=== PATIENT | female | born 1945 | race Caucasian/White ===

== ENCOUNTER 2019-11-24 17:04 | Inpatient (IN) | payer MEDICARE, OTHER ==
[~2019-11-24] VITALS: Ht 167.6 cm; Wt 68.0 kg
[2019-11-24] MEDS ORDERED: SODIUM CHLORIDE 0.9% 1000ML 1,000 ML IV STA (17:22)
[2019-11-24] MEDS ORDERED: VANCOMYCIN HCL 1GM/NS 250 ML BAG IV SCH (17:30)
[2019-11-24] MEDS ORDERED: CEFEPIME HCL 2 GM/SOD CHL 0.9% 100 ML BAG IV SCH (17:30)
--- NOTE | 2019-11-24 17:39 | Emergency Department Note ---
History of Present Illnes History of Present Illness Chief Complaint: Respiratory History of Present Illness This is a 74 year old female [facility]/o diff breathing has trach collar - pt awake alert oriented x 3 o2 sat 97% PATIENT IN [facility] FOR DIFFICULTY BREATHING; PATIENT HAS A TRACH AND IS USUALLY JUST ON A TRACH COLLAR. PATIENT STATES THAT SHE IS UNABLE TO BREATH AND NEEDS SOMEONE TO BAG HER. PATIENT O2 SATS 97% ON O2, APPEARS IN NO DISTRESS, BAGGED BY EMS UPON ARRIVAL Historian: Patient, Administration Professional/EMS Arrival Mode: [place] Onset (how long ago): day(s) (1) Radiation: Denies non-radiation, Denies back, Denies neck, Denies extremity, Denies abdomen, Denies periumbilical, Denies flank, Denies proximal, Denies distal, Denies other Severity: mild Onset quality: sudden Duration (how long): day(s) (1) Timing of current episode: constant Progression: unchanged Context: Denies recent illness, Denies recent surgery, Denies recent immobilization, Denies recent travel, Denies trauma/injury, Denies new medications, Denies hx of DVT/PE, Denies non-compliance w/ medications, Denies other Relieving factors: none Exacerbating factors: none Associated symptoms: Denies denies other symptoms, Denies confusion, Denies chest pain, Denies cough, Denies diaphoresis, Denies fever/chills, Denies headaches, Denies loss of appetite, Denies malaise, Denies nausea/vomiting, Denies rash, Denies seizure, Denies shortness of breath, Denies syncope, Denies weakness, Denies other Past Medical/Family History Physician Review I have reviewed the patient's past medical and family history. Any updates have been documented here. 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% ) Gastrointestinal: Reports no symptoms Genitourinary: Reports no symptoms Musculoskeletal: Reports no symptoms Integumentary: Reports no symptoms Neurological: Reports no symptoms Psychological: Reports no symptoms Endocrine: Reports no symptoms Hematological/Lymphatic: Reports no symptoms Physical Exam Related Data Allergies: Coded Allergies: Penicillins (Verified Allergy, Severe, 11/24/19) Triage Vital Signs Vital Signs Date Time Temp Pulse Resp B/P (MAP) Pulse Ox O2 Delivery O2 Flow Rate FiO2 11/24/19 17:04 97.6 86 16 121/70 97 Ambu-Bag Vital signs reviewed: Yes Physical Exam CONSTITUTIONAL Constitutional: Present well-developed, Present well-nourished HENT HENT: Present normocephalic, Present atraumatic, Present oropharynx clear/moist, Present nose normal HENT L/R: Present left ext ear normal, Present right ext ear normal EYES Eyes: Reports PERRL, Reports conjunctivae normal NECK Neck: Present ROM normal PULMONARY Pulmonary: Present effort normal, Present breath sounds normal; Absent respiratory distress, Absent chest tenderness CARDIOVASCULAR Cardiovascular: Present regular rhythm, Present heart sounds normal, Present capillary refill normal, Present normal rate GASTROINTESTINAL Abdominal: Present soft, Present nontender, Present bowel sounds normal GENITOURINARY Genitourinary: Present exam deferred SKIN Skin: Present warm, Present dry MUSCULOSKELETAL Musculoskeletal: Present ROM normal NEUROLOGICAL Neurological: Present alert, Present oriented x 3, Present no gross motor or sensory deficits PSYCHOLOGICAL Psychological: Present mood/affect normal, Present judgement normal Results Laboratory Laboratory Laboratory Tests Test 11/24/19 17:58 11/24/19 17:40 Influenza Virus Types A,B Antigen Negative (NEGATIVE) White Blood Count 14.89 x10e3/uL (4.8-10.8) Red Blood Count 4.78 x10e6/uL (3.6-5.1) Hemoglobin 13.7 g/dL (12.0-16.0) Hematocrit 43.6 % (34.2-44.1) Mean Corpuscular Volume 91.2 fL (81-99) Mean Corpuscular Hemoglobin 28.7 pg (28-32) Mean Corpuscular Hemoglobin Concent 31.4 g/dL (31-35) Red Cell Distribution Width 12.8 % (11.7-14.4) Platelet Count 306 x10e3/uL (140-360) Neutrophils (%) (Auto) 89.8 % (38.7-80.0) Lymphocytes (%) (Auto) 5.0 % (18.0-39.1) Monocytes (%) (Auto) 4.5 % (4.4-11.3) Eosinophils (%) (Auto) 0.1 % (0.0-6.0) Basophils (%) (Auto) 0.3 % (0.0-1.0) Neutrophils # (Auto) 13.4 (2.1-6.9) Lymphocytes # (Auto) 0.7 (1.0-3.2) Monocytes # (Auto) 0.7 (0.2-0.8) Eosinophils # (Auto) 0.0 (0.0-0.4) Basophils # (Auto) 0.1 (0.0-0.1) Absolute Immature Granulocyte (auto 0.05 x10e3/uL (0-0.1) Prothrombin Time 12.9 seconds (11.9-14.5) Prothromb Time International Ratio 0.92 Activated Partial Thromboplast Time 27.7 seconds (23.8-35.5) Sodium Level 143 mmol/L (136-145) Potassium Level 3.9 mmol/L (3.5-5.1) Chloride Level 103 mmol/L (98-107) Carbon Dioxide Level 30 mmol/L (22-29) Anion Gap 13.9 mmol/L (8-16) Blood Urea Nitrogen 35 mg/dL (7-26) Creatinine 0.95 mg/dL (0.57-1.11) Estimat Glomerular Filtration Rate 57 ML/MIN (60-) BUN/Creatinine Ratio 37 (6-25) Glucose Level 196 mg/dL (74-118) Lactic Acid Level 2.0 mmol/L (0.5-2.0) Calcium Level 10.7 mg/dL (8.4-10.2) Total Bilirubin 0.3 mg/dL (0.2-1.2) Aspartate Amino Transf (AST/SGOT) 32 IU/L (5-34) Alanine Aminotransferase (ALT/SGPT) 30 IU/L (0-55) Alkaline Phosphatase 59 IU/L (40-150) Creatine Kinase 36 IU/L (29-168) B-Type Natriuretic Peptide 60.6 pg/mL (0-100) Total Protein 8.1 g/dL (6.5-8.1) Albumin 2.9 g/dL (3.5-5.0) Globulin 5.2 g/dL (2.3-3.5) Albumin/Globulin Ratio 0.6 (0.8-2.0) Lipase 25 U/L (8-78) Laboratory Tests Test 11/24/19 17:58 11/24/19 17:40 Influenza Virus Types A,B Antigen Negative (NEGATIVE) White Blood Count 14.89 x10e3/uL (4.8-10.8) Red Blood Count 4.78 x10e6/uL (3.6-5.1) Hemoglobin 13.7 g/dL (12.0-16.0) Hematocrit 43.6 % (34.2-44.1) Mean Corpuscular Volume 91.2 fL (81-99) Mean Corpuscular Hemoglobin 28.7 pg (28-32) Mean Corpuscular Hemoglobin Concent 31.4 g/dL (31-35) Red Cell Distribution Width 12.8 % (11.7-14.4) Platelet Count 306 x10e3/uL (140-360) Neutrophils (%) (Auto) 89.8 % (38.7-80.0) Lymphocytes (%) (Auto) 5.0 % (18.0-39.1) Monocytes (%) (Auto) 4.5 % (4.4-11.3) Eosinophils (%) (Auto) 0.1 % (0.0-6.0) Basophils (%) (Auto) 0.3 % (0.0-1.0) Neutrophils # (Auto) 13.4 (2.1-6.9) Lymphocytes # (Auto) 0.7 (1.0-3.2) Monocytes # (Auto) 0.7 (0.2-0.8) Eosinophils # (Auto) 0.0 (0.0-0.4) Basophils # (Auto) 0.1 (0.0-0.1) Absolute Immature Granulocyte (auto 0.05 x10e3/uL (0-0.1) Prothrombin Time 12.9 seconds (11.9-14.5) Prothromb Time International Ratio 0.92 Activated Partial Thromboplast Time 27.7 seconds (23.8-35.5) Sodium Level 143 mmol/L (136-145) Potassium Level 3.9 mmol/L (3.5-5.1) Chloride Level 103 mmol/L (98-107) Carbon Dioxide Level 30 mmol/L (22-29) Anion Gap 13.9 mmol/L (8-16) Blood Urea Nitrogen 35 mg/dL (7-26) Creatinine 0.95 mg/dL (0.57-1.11) Estimat Glomerular Filtration Rate 57 ML/MIN (60-) BUN/Creatinine Ratio 37 (6-25) Glucose Level 196 mg/dL (74-118) Lactic Acid Level 2.0 mmol/L (0.5-2.0) Calcium Level 10.7 mg/dL (8.4-10.2) Total Bilirubin 0.3 mg/dL (0.2-1.2) Aspartate Amino Transf (AST/SGOT) 32 IU/L (5-34) Alanine Aminotransferase (ALT/SGPT) 30 IU/L (0-55) Alkaline Phosphatase 59 IU/L (40-150) Creatine Kinase 36 IU/L (29-168) B-Type Natriuretic Peptide 60.6 pg/mL (0-100) Total Protein 8.1 g/dL (6.5-8.1) Albumin 2.9 g/dL (3.5-5.0) Globulin 5.2 g/dL (2.3-3.5) Albumin/Globulin Ratio 0.6 (0.8-2.0) Lipase 25 U/L (8-78) Laboratory Tests Test 11/24/19 17:58 11/24/19 17:40 Influenza Virus Types A,B Antigen Negative (NEGATIVE) White Blood Count 14.89 x10e3/uL (4.8-10.8) Red Blood Count 4.78 x10e6/uL (3.6-5.1) Hemoglobin 13.7 g/dL (12.0-16.0) Hematocrit 43.6 % (34.2-44.1) Mean Corpuscular Volume 91.2 fL (81-99) Mean Corpuscular Hemoglobin 28.7 pg (28-32) Mean Corpuscular Hemoglobin Concent 31.4 g/dL (31-35) Red Cell Distribution Width 12.8 % (11.7-14.4) Platelet Count 306 x10e3/uL (140-360) Neutrophils (%) (Auto) 89.8 % (38.7-80.0) Lymphocytes (%) (Auto) 5.0 % (18.0-39.1) Monocytes (%) (Auto) 4.5 % (4.4-11.3) Eosinophils (%) (Auto) 0.1 % (0.0-6.0) Basophils (%) (Auto) 0.3 % (0.0-1.0) Neutrophils # (Auto) 13.4 (2.1-6.9) Lymphocytes # (Auto) 0.7 (1.0-3.2) Monocytes # (Auto) 0.7 (0.2-0.8) Eosinophils # (Auto) 0.0 (0.0-0.4) Basophils # (Auto) 0.1 (0.0-0.1) Absolute Immature Granulocyte (auto 0.05 x10e3/uL (0-0.1) Prothrombin Time 12.9 seconds (11.9-14.5) Prothromb Time International Ratio 0.92 Activated Partial Thromboplast Time 27.7 seconds (23.8-35.5) Lactic Acid Level 2.0 mmol/L (0.5-2.0) Lab results reviewed: Yes Imaging Impressions Procedure: [id number] DX/CHEST SINGLE (PORTABLE) Exam Date: 11/24/19 Exam Time: 1739 REPORT STATUS: Signed EXAMINATION: CHEST SINGLE (PORTABLE) INDICATION: ^Y ^ERMD ORDER ^[id number] ^1739 ^Y COMPARISON: None FINDINGS: AP view TUBES and LINES: Tracheostomy tube in adequate position. ICD with leads overlying the coronary sinus and right ventricle. Right atrial lead is not well seen. LUNGS: Lungs are well inflated. Subsegmental atelectasis in the right lower lobe. Mild bilateral central pulmonary vascular congestion. PLEURA: No pleural effusion or pneumothorax. HEART AND MEDIASTINUM: The cardiomediastinal silhouette is unremarkable.. BONES AND SOFT TISSUES: No acute osseous lesion. Soft tissues are unremarkable. UPPER ABDOMEN: No free air under the diaphragm. IMPRESSION: Subsegmental atelectasis in the right lower lobe, cannot exclude underlying pneumonia. Mild central pulmonary vascular congestion. Signed by: Dr. Stanford العراقي M.D. on 11/24/2019 6:27 PM Dictated By: STANFORD العراقي MD 26 Transcribed By: SUZI on 11/24/191826 COPY TO: PATT LUCIANO~ Procedures 12 Lead ECG Interpretation ECG Interpretation : ECG: ECG 1 Dobie Worker: Interpreted by ED physician Date: Nov 24, 2019 Time: 17:53 Prior ECG tracings: reviewed Rhythm: paced Assessment & Plan Medical Decision Making MDM This is a 74 year old female [facility] diff breathing has trach collar - pt awake alert oriented x 3 o2 sat 97% ordered lab ekg cxr medicated w/ vanc/cefepime d/d viral illness / trach disfunction / pne / covid / electrolyte imbalance Reassessment Reassessment discussed plan of care and need for admit spoke w/ Dr De La Cruz will admit Assessment & Plan Final Impression: (1) Pneumonia (2) Upper respiratory infection (3) Hypoxia (4) Tracheostomy in place Depart Disposition: ADMITTED Last Vital Signs Date Time Temp Pulse Resp B/P (MAP) Pulse Ox O2 Delivery O2 Flow Rate FiO2 11/24/19 17:04 97.6 86 16 121/70 97 Ambu-Bag Medications in the ED Sodium Chloride 1,000 ml @ 0 mls/hr Q0M STAT IV ; Start 11/24/19 at 17:22; Stop 11/24/19 at 17:27; Status DC Vancomycin HCl 250 ml @ 167 mls/hr ONCE ONCE IV ; Start 11/24/19 at 18:30; Stop 11/24/19 at 19:59 Cefepime HCl 50 ml @ 50 mls/hr ONCE ONCE IV ; Start 11/24/19 at 17:45; Stop 11/24/19 at 18:44 PATT LUCIANO Nov 24, 2019 17:39
[2019-11-24] MEDS ORDERED: CEFEPIME 1GM/NS 0.9% 50 ML 50 ML IV ONE (17:45)
[2019-11-24] MEDS: SODIUM CHLORIDE 0.9% 1000ML 1,000 ML IV SCH (18:18)
[2019-11-24] MEDS ORDERED: IPRATROPIUM BROMIDE 0.02% 2.5 ML NEB NEB SCH (18:20)
[2019-11-24 18:24] LABS: BASOPHILS # (AUTO) 0.1 (0.0-0.1); BASOPHILS % 0.3 % (0.0-1.0); EOSINOPHILS % 0.1 % (0.0-6.0); HEMATOCRIT 43.6 % (34.2-44.1); HEMOGLOBIN 13.7 g/dL (12.0-16.0); LYMPHOCYTES # (AUTO) 0.7 (1.0-3.2); MEAN CORPUSCULAR HEMOGLOBIN 28.7 pg (28-32); MEAN CORPUSCULAR HGB CONC 31.4 g/dL (31-35); MEAN CORPUSCULAR VOLUME 91.2 fL (81-99); MONOCYTES # (AUTO) 0.7 (0.2-0.8); MONOCYTES % 4.5 % (4.4-11.3); NEUTROPHILS # (AUTO) 13.4 (2.1-6.9); NEUTROPHILS % 89.8 % (38.7-80.0); PLATELET COUNT 306 x10e3/uL (140-360); RED BLOOD COUNT 4.78 x10e6/uL (3.6-5.1); RED CELL DISTRIBUTION WIDTH 12.8 % (11.7-14.4)
[2019-11-24] MEDS ORDERED: VANCOMYCIN 1GM/NS 250 ML 250 ML IV ONE (18:30)
--- NOTE | 2019-11-24 18:30 | Diagnostic Imaging Report ---
EXAMINATION: CHEST SINGLE (PORTABLE) INDICATION: ^Y ^ERMD ORDER ^[id number] ^1740 ^Y COMPARISON: None FINDINGS: AP view TUBES and LINES: Tracheostomy tube in adequate position. ICD with leads overlying the coronary sinus and right ventricle. Right atrial lead is not well seen. LUNGS: Lungs are well inflated. Subsegmental atelectasis in the right lower lobe. Mild bilateral central pulmonary vascular congestion. PLEURA: No pleural effusion or pneumothorax. HEART AND MEDIASTINUM: The cardiomediastinal silhouette is unremarkable.. BONES AND SOFT TISSUES: No acute osseous lesion. Soft tissues are unremarkable. UPPER ABDOMEN: No free air under the diaphragm. IMPRESSION: Subsegmental atelectasis in the right lower lobe, cannot exclude underlying pneumonia. Mild central pulmonary vascular congestion. Signed by: Dr. Bonny Campbell M.D. on 11/24/2019 6:27 PM
[2019-11-24 18:33] LABS: INR 0.92; PROTHROMBIN TIME 12.9 seconds (11.9-14.5)
[2019-11-24 18:34] LABS: PARTIAL THROMBOPLASTIN TIME 27.7 seconds (23.8-35.5)
[2019-11-24 18:42] LABS: ALBUMIN 2.9 g/dL (3.5-5.0); ALBUMIN/GLOBULIN RATIO 0.6 (0.8-2.0); ANION GAP 13.9 mmol/L (8-16); CALCIUM 10.7 mg/dL (8.4-10.2); CREATININE, SERUM 0.95 mg/dL (0.57-1.11); POTASSIUM 3.9 mmol/L (3.5-5.1)
[2019-11-24 18:51] LABS: B-TYPE NATRIURETIC PEPTIDE2 60.6 pg/mL (0-100)
[2019-11-24 19:02] LABS: CREATINE KINASE MB 4.2 ng/mL (0-5.0); THYROID STIMULATING HORMONE 1.928 uIU/mL (0.350-4.940)
[2019-11-24] MEDS: ALBUTEROL SULF 0.083% NEB SOLN 3 ML NEB NEB SCH (20:40)
[2019-11-25] MEDS: SODIUM CHLORIDE 0.9% 1000ML 1,000 ML IV SCH ×2 (02:50→19:50)
[2019-11-25 07:18] LABS: BASOPHILS % 0.2 % (0.0-1.0); EOSINOPHILS % 0.1 % (0.0-6.0); HEMATOCRIT 41.3 % (34.2-44.1); HEMOGLOBIN 12.6 g/dL (12.0-16.0); LYMPHOCYTES # (AUTO) 1.7 (1.0-3.2); LYMPHOCYTES % 20.8 % (18.0-39.1); MEAN CORPUSCULAR HEMOGLOBIN 28.4 pg (28-32); MEAN CORPUSCULAR HGB CONC 30.5 g/dL (31-35); MONOCYTES # (AUTO) 0.5 (0.2-0.8); MONOCYTES % 6.3 % (4.4-11.3); NEUTROPHILS # (AUTO) 5.9 (2.1-6.9); NEUTROPHILS % 72.2 % (38.7-80.0); PLATELET COUNT 270 x10e3/uL (140-360); RED BLOOD COUNT 4.44 x10e6/uL (3.6-5.1); RED CELL DISTRIBUTION WIDTH 12.7 % (11.7-14.4)
--- NOTE | 2019-11-25 07:25 | NUR ---
NURSING REPORT RECEIVED FROM CHOLO FOWLER.
[2019-11-25 07:50] LABS: ALANINE AMINOTRANSFERASE 23 IU/L (0-55); ALBUMIN 2.7 g/dL (3.5-5.0); ALBUMIN/GLOBULIN RATIO 0.6 (0.8-2.0); ALKALINE PHOSPHATASE 55 IU/L (40-150); ANION GAP 12.9 mmol/L (8-16); BLOOD UREA NITROGEN 34 mg/dL (7-26); BUN/CREATININE RATIO 43 (6-25); CARBON DIOXIDE 27 mmol/L (22-29); CHLORIDE 109 mmol/L (98-107); EST GLOMERULAR FILTRATION RATE > 60 ML/MIN (60-); GLUCOSE 111 mg/dL (74-118); POTASSIUM 3.9 mmol/L (3.5-5.1); SODIUM 145 mmol/L (136-145)
[2019-11-25 08:18] LABS: CREATINE KINASE MB 3.9 ng/mL (0-5.0)
[2019-11-25] MEDS: CEFEPIME 2 GM/NS 0.9% 100 ML 100 ML IV SCH ×2 (09:38→19:43)
--- NOTE | 2019-11-25 11:10 | NUR ---
PT REMOVED FROM VENTILATOR, PT PLACED ON 40% TRACH COLLAR.
[2019-11-25] MEDS: VANCOMYCIN 1GM/NS 250 ML 250 ML IV SCH ×3 (12:00→23:30)
[2019-11-25] MEDS: IPRATROPIUM BROMIDE 0.02% 2.5 ML NEB NEB SCH ×3 (14:00→23:35)
--- NOTE | 2019-11-25 14:23 | Consultation ---
DATE OF CONSULTATION: Pulmonary Consultation Patient of Dr. Navarro De La Cruz HISTORY OF PRESENT ILLNESS: Unfortunate 74-year-old woman admitted from alf with shortness of breath, hypoxia, and anxious. Apparently, she has had a left mastectomy for cancer. Has a tracheostomy. Allergic to penicillin. She has bloody secretions which she requested that I remove. Further questions were not answered by her. We were concerned with her thirst but she declined water, requesting ice. This was discussed with the nurse. she denies dx of copd she was a typisr PHYSICAL EXAMINATION: VITAL SIGNS: Temperature 98.5, pulse 60 and regular, respirations 20, blood pressure 150/88. A tracheostomy is in place. Bloody secretions were aspirated. LUNGS: Diminished breath sounds. Pacemaker right chest wall. Left mastectomy scar. HEART: Regular rhythm. ABDOMEN: Nontender. EXTREMITIES: Not edematous. IMPRESSION: Right lower lobe infiltrate. PLAN: Pneumonia, COPD, breast cancer. Reason for tracheostomy is unclear at this time. Apparently, will attempted to get old records. Thank you for this kind referral. MD RICHARD Mccloud/CLAUDINE /[id number] MTDJudith
[2019-11-25 15:45] LABS: ABG HCO3 28 mmol/L (22-26); ABG PCO2 47 mmHg (35-45); ABG PH 7.39 (7.35-7.45); ABG PO2 113 mmHg (80-105)
[2019-11-25 16:59] LABS: CREATINE KINASE MB 6.1 ng/mL (0-5.0)
[2019-11-25] MEDS: ENOXAPARIN SOD INJ 40 MG/0.4 ML SYR SC SCH (19:43)
[2019-11-25] MEDS: ALBUTEROL SULF 0.083% NEB SOLN 3 ML NEB NEB SCH (23:35)
[2019-11-26] VITALS (10 sets, daily range): BP systolic 121–174; BP diastolic 64–108
--- NOTE | 2019-11-26 00:50 | NUR ---
Patient received via stretcher. AAO x 2. Patient had no complaints of pain. Respirations even and non-labored. Tracheostomy collar in place. Admission history obtained. Initial physical assessment conducted. Safety measures implemented. Patient provided pen and paper to communicate needs. Patient instructed to call for assistance when needed. Call light within reach.
[2019-11-26] MEDS: IPRATROPIUM BROMIDE 0.02% 2.5 ML NEB NEB SCH ×6 (02:30→22:00)
[2019-11-26] MEDS: ALBUTEROL SULF 0.083% NEB SOLN 3 ML NEB NEB SCH ×6 (02:30→23:00)
[2019-11-26] MEDS ORDERED: SEROQUEL25 MG GT (04:29)
[2019-11-26] MEDS ORDERED: ACETAMINOPHEN325 M1 GT (04:29)
[2019-11-26] MEDS ORDERED: FLUTICASONE PRO16 GM NS (04:29)
[2019-11-26] MEDS ORDERED: BUSPIRONE HCL5 MG GT (04:29)
[2019-11-26] MEDS ORDERED: NYSTATIN1 EAC2 TOP (04:29)
[2019-11-26] MEDS ORDERED: METOPROLOL TART25 MG GT (04:29)
[2019-11-26] MEDS ORDERED: ULTRAM50 MG PO (04:29)
[2019-11-26] MEDS ORDERED: ZOLOFT50 MG GT (04:29)
[2019-11-26] MEDS ORDERED: IPRAT-ALBUT 0.5-3 ML INH (04:29)
[2019-11-26] MEDS ORDERED: DOCUSATE SODIU100 MG GT (04:29)
[2019-11-26] MEDS ORDERED: BENADRYL ALLERG25 MG GT (04:29)
[2019-11-26] MEDS ORDERED: CLARITIN-D 241 EACH GT (04:29)
--- NOTE | 2019-11-26 04:30 | NUR ---
Sputum specimen sent to lab for culture
[2019-11-26 06:09] LABS: BASOPHILS % 0.4 % (0.0-1.0); EOSINOPHILS % 0.4 % (0.0-6.0); HEMATOCRIT 42.2 % (34.2-44.1); LYMPHOCYTES # (AUTO) 1.4 (1.0-3.2); LYMPHOCYTES % 20.2 % (18.0-39.1); MEAN CORPUSCULAR HEMOGLOBIN 29.1 pg (28-32); MEAN CORPUSCULAR HGB CONC 30.8 g/dL (31-35); MEAN CORPUSCULAR VOLUME 94.6 fL (81-99); MONOCYTES # (AUTO) 0.5 (0.2-0.8); MONOCYTES % 7.6 % (4.4-11.3); NEUTROPHILS # (AUTO) 4.9 (2.1-6.9); PLATELET COUNT 252 x10e3/uL (140-360); RED BLOOD COUNT 4.46 x10e6/uL (3.6-5.1); RED CELL DISTRIBUTION WIDTH 12.7 % (11.7-14.4)
[2019-11-26 06:29] LABS: CREATINE KINASE MB 10.4 ng/mL (0-5.0)
[2019-11-26] MEDS: CEFEPIME 2 GM/NS 0.9% 100 ML 100 ML IV SCH ×2 (06:41→22:30)
[2019-11-26] MEDS: VANCOMYCIN 1GM/NS 250 ML 250 ML IV SCH (06:41)
--- NOTE | 2019-11-26 07:00 | NUR ---
Walking rounds done. Patient resting comfortably. Bed-side shift report given to oncoming nurse.
[2019-11-26 07:03] LABS: ANION GAP 13.5 mmol/L (8-16); BLOOD UREA NITROGEN 33 mg/dL (7-26); BUN/CREATININE RATIO 42 (6-25); CALCIUM 10.2 mg/dL (8.4-10.2); CARBON DIOXIDE 25 mmol/L (22-29); CHLORIDE 110 mmol/L (98-107); CREATININE, SERUM 0.79 mg/dL (0.57-1.11); EST GLOMERULAR FILTRATION RATE > 60 ML/MIN (60-); GLUCOSE 107 mg/dL (74-118); POTASSIUM 3.5 mmol/L (3.5-5.1); SODIUM 145 mmol/L (136-145)
[2019-11-26] MEDS: SODIUM CHLORIDE 0.9% 1000ML 1,000 ML IV SCH ×2 (09:30→22:30)
[2019-11-26] MEDS ORDERED: FLUTICASONE PROPIONATE NASAL SPRAY NS PRN (12:30)
[2019-11-26] MEDS ORDERED: NYSTATIN 15 GM POWDER UD BTL TOP PRN (12:30)
[2019-11-26] MEDS ORDERED: ACETAMINOPHEN 325 MG TAB GT PRN (12:30)
[2019-11-26] MEDS: ONDANSETRON HCL INJ 2MG/ML 2ML 2 MG/ML VIAL IV PRN (14:40)
[2019-11-26] MEDS: SERTRALINE HCL 50 MG TAB GT SCH (16:42)
[2019-11-26] MEDS: ENOXAPARIN SOD INJ 40 MG/0.4 ML SYR SC SCH (16:42)
[2019-11-26] MEDS: DOCUSATE SODIUM LIQD 100 MG/10 ML UDC GT SCH (16:42)
[2019-11-26] MEDS: METOPROLOL TARTRATE 25 MG TAB GT SCH (16:42)
[2019-11-26] MEDS: BUSPIRONE HCL 5 MG TAB GT SCH (16:42)
--- NOTE | 2019-11-26 17:42 | NUR ---
Peg tube flushed with no issues, continuos tube feeding started,
--- NOTE | 2019-11-26 19:30 | NUR ---
PATIENT NAUSEATED, NO IV, UNABLE TO GIVE ANTINAUSEA MEDICATION. DECREASED TUBE FEED TO 30ML/HR TO DECREASE STRAIN ON STOMACH AT PATIENT'S REQUEST.
--- NOTE | 2019-11-26 19:56 | NUR ---
ABBY Cardozo JAIMES CONCERNING NEED FOR PICC LINE, MULTIPLE IV ATTEMPTS BY MULTIPLE STAFF, UNABLE TO OBTAIN IV.
[2019-11-26] MEDS: QUETIAPINE FUMARATE 25 MG TAB GT SCH (20:11)
--- NOTE | 2019-11-26 20:41 | NUR ---
REPAGED MD Cas JAIMES FOR ORDERS.
[2019-11-26] MEDS: ALBUTEROL/IPRATROPIUM 3 ML NEB INH SCH (20:45)
--- NOTE | 2019-11-26 21:27 | NUR ---
ABBY JAIMES FOR THE THIRD TIME.
--- NOTE | 2019-11-26 22:21 | NUR ---
NEW IV OBTAINED TO L FA 20G. FIRST ATTEMPT. CANCELLED PAGE TO MD JAIMES.
[2019-11-27] VITALS (8 sets, daily range): BP systolic 119–155; BP diastolic 55–96
[2019-11-27] MEDS: METOPROLOL TARTRATE 25 MG TAB GT SCH ×3 (00:30→23:59)
[2019-11-27] MEDS: IPRATROPIUM BROMIDE 0.02% 2.5 ML NEB NEB SCH ×4 (02:00→14:00)
[2019-11-27] MEDS: ALBUTEROL/IPRATROPIUM 3 ML NEB INH SCH ×4 (02:30→20:15)
[2019-11-27] MEDS: ALBUTEROL SULF 0.083% NEB SOLN 3 ML NEB NEB SCH ×5 (03:00→20:28)
[2019-11-27 05:58] LABS: ALANINE AMINOTRANSFERASE 19 IU/L (0-55); ALBUMIN 2.8 g/dL (3.5-5.0); ALBUMIN/GLOBULIN RATIO 0.7 (0.8-2.0); ALKALINE PHOSPHATASE 47 IU/L (40-150); ANION GAP 9.4 mmol/L (8-16); BLOOD UREA NITROGEN 33 mg/dL (7-26); BUN/CREATININE RATIO 42 (6-25); CARBON DIOXIDE 28 mmol/L (22-29); CHLORIDE 110 mmol/L (98-107); CREATININE, SERUM 0.78 mg/dL (0.57-1.11); EST GLOMERULAR FILTRATION RATE > 60 ML/MIN (60-); GLUCOSE 107 mg/dL (74-118); POTASSIUM 3.4 mmol/L (3.5-5.1); SODIUM 144 mmol/L (136-145)
--- NOTE | 2019-11-27 07:15 | NUR ---
ASSUMED CARE. RESTING IN BED WITH EYES CLOSED. ACYANOTIC. EQUAL RISE AND FALL NOTED WITH RESPIRATIONS. NO DISTRESS NOTED. CALL LIGHT IN REACH. SIDE RAILS UP X2. BED LOW AND LOCKED.
[2019-11-27] MEDS: DOCUSATE SODIUM LIQD 100 MG/10 ML UDC GT SCH ×2 (08:15→17:29)
[2019-11-27] MEDS: SODIUM CHLORIDE 0.9% 1000ML 1,000 ML IV SCH ×2 (08:15→19:19)
[2019-11-27] MEDS: SERTRALINE HCL 50 MG TAB GT SCH ×2 (08:15→17:29)
[2019-11-27] MEDS: BUSPIRONE HCL 5 MG TAB GT SCH ×2 (08:15→17:29)
--- NOTE | 2019-11-27 08:39 | Diagnostic Imaging Report ---
EXAMINATION: CHEST SINGLE (PORTABLE) INDICATION: Pneumonia COMPARISON: Chest radiograph 11/24/2019 FINDINGS: LINES/TUBES:Tracheostomy tube unchanged. Right chest AICD unchanged. EKG leads overlie the chest. LUNGS:The lung volumes are very low. Unchanged right basilar opacity. Elevation of the right hemidiaphragm. PLEURA:No pleural effusion or pneumothorax. MEDIASTINUM:The cardiomediastinal silhouette appears unchanged in size and shape. BONES/SOFT TISSUES:No acute osseous injury. ABDOMEN:No free air under the diaphragm. IMPRESSION: No significant interval change. Signed by: Nasim Yip MD on 11/27/2019 8:35 AM
[2019-11-27] MEDS ORDERED: LORATADINE/PSEUDOEPHEDRINE 24 HR SR TAB PO PRN (09:00)
[2019-11-27] MEDS: CEFEPIME 2 GM/NS 0.9% 100 ML 100 ML IV SCH ×2 (10:40→21:40)
[2019-11-27] MEDS: VANCOMYCIN 1GM/NS 250 ML 250 ML IV SCH ×2 (11:46→22:59)
[2019-11-27] MEDS ORDERED: POTASSIUM CHLORIDE 20 MEQ TAB CR PO ONE (12:00)
[2019-11-27] MEDS: LORAZEPAM 0.5 MG TAB PO PRN (17:29)
[2019-11-27] MEDS: ENOXAPARIN SOD INJ 40 MG/0.4 ML SYR SC SCH (17:29)
--- NOTE | 2019-11-27 18:17 | NUR ---
Nutrition Intervention Note RD Recommendation(s) for Physician: - Decrease TF rate of Glucerna 1.5 to goa rate of 45 ml/hr (provies 1620 kcal and 89 gm protein) - Water flushes and fluid management per MD Plan of Care: RD following, TF rec's, monitoring for tolerance and adequacy Nutrition reason for involvement: new TF RD Assessment 11/26: 74 YOF admitted for hypoxia and URI with trach in place on admit. Pt evaluated per new TF. Pt admitted from [place], unable to obtain nutrition hx from pt at this time. TF initiated yesterday, previously tolerating at 30 ml/hr- rate turned down to 30 ml/hr per pt request, and now at 50 ml/hr. Current TF meeting needs. No GI distress reported. No hx of DM documented in [employer], however pt requiring a kcal dense formula at this time due to decreased rate tolerance. TF rec's provided. Chart reviewed. Will continue to monitor. Principal Problems/Diagnoses: hypoxia, +trach, URI PMH: breast cancer with mastectomy, COPD, +trach GI: LBM 11/26 Skin: intact Labs: 11/26: Na 144, K 3.4, BUN 33, Cr 0.78, Gluc 107 Meds: seroquel, ativan, zofran, colace, abx Ht: 66 in Wt: 150 lb BMI: 24.2 kg/m2 IBW: 235 lb Malnutrition Evaluation (11/27/19) Unable to complete malnutrition assessment at this time. Nutrition Prescription (Diet Order): TF: Glucerna 1.5 at 50 ml/hr (1800 kcal and99 gm protein) Estimated Nutritional Needs: Calories: 1694-3411 (22-27 kcal/kg/d) Weight used: CBW Protein: 68-102 (1-1.5 g/kg/d) Weight used: CBW Diet Adequacy: Meeting calorie needs, meeting protein needs- per current TF rate Tolerance: tolerating TF Diet Education Needs Assessment: Diet education not indicated. Nutrition Care Level: Moderate Nutrition Diagnosis: Inadequate energy intake and protein intake related to current medical conditions and tracheostomy as evidenced by requiring EN. Goal: Patient will meet 75-100% of estimated needs by follow up Progress: N/A Interventions: Tube feeding - Composition, Rate, Route Monitoring/Evaluation: Total energy intake, Total protein intake, Formula/Solution, Weight change Signed: Lilia Huff RD, LD, CNSC
[2019-11-27] MEDS: ONDANSETRON HCL INJ 2MG/ML 2ML 2 MG/ML VIAL IV PRN (19:19)
--- NOTE | 2019-11-27 19:30 | NUR ---
PATIENT COMMUNICATED THAT THE FEEDING IS MAKING HER STOMACH FULL AND REQUEST FOR THE FEEDING TO BE STOPPED. THE FEEDING IS PUT ON HOLD FOR NOW, WILL CONTINUE TO MONITOR.
[2019-11-27] MEDS: QUETIAPINE FUMARATE 25 MG TAB GT SCH (21:40)
--- NOTE | 2019-11-27 21:40 | NUR ---
PATIENT IS RESTING IN BED IN STABLE CONDITION, TRACH COLLAR IS PATENT, AND INTACT. SUCTIONING IS BEING DONE ON PATIENT NEEDED AND VOICES NO PAIN AT THIS TIME. IV FLUIDS ARE RUNNING AT ORDERED RATE. BED IS IN LOWEST POSITION, BOTH SIDE RAILS ARE UP, CALL LIGHT IS WITHIN EASY REACH, WILL CONTINUE TO MONITOR.
[2019-11-28] VITALS (7 sets, daily range): BP systolic 113–189; BP diastolic 65–96
[2019-11-28] MEDS: ALBUTEROL/IPRATROPIUM 3 ML NEB INH SCH ×4 (01:00→19:30)
[2019-11-28 05:48] LABS: BASOPHILS % 0.4 % (0.0-1.0); EOSINOPHILS # (AUTO) 0.1 (0.0-0.4); EOSINOPHILS % 0.7 % (0.0-6.0); HEMATOCRIT 36.9 % (34.2-44.1); HEMOGLOBIN 11.4 g/dL (12.0-16.0); LYMPHOCYTES # (AUTO) 2.6 (1.0-3.2); LYMPHOCYTES % 35.7 % (18.0-39.1); MEAN CORPUSCULAR HEMOGLOBIN 28.6 pg (28-32); MEAN CORPUSCULAR HGB CONC 30.9 g/dL (31-35); MEAN CORPUSCULAR VOLUME 92.7 fL (81-99); MONOCYTES # (AUTO) 0.6 (0.2-0.8); MONOCYTES % 8.4 % (4.4-11.3); NEUTROPHILS % 54.4 % (38.7-80.0); PLATELET COUNT 249 x10e3/uL (140-360); RED BLOOD COUNT 3.98 x10e6/uL (3.6-5.1); RED CELL DISTRIBUTION WIDTH 12.9 % (11.7-14.4)
[2019-11-28 05:55] LABS: ANION GAP 8.8 mmol/L (8-16); BLOOD UREA NITROGEN 21 mg/dL (7-26); BUN/CREATININE RATIO 31 (6-25); CALCIUM 8.9 mg/dL (8.4-10.2); CARBON DIOXIDE 27 mmol/L (22-29); CHLORIDE 111 mmol/L (98-107); CREATININE, SERUM 0.67 mg/dL (0.57-1.11); EST GLOMERULAR FILTRATION RATE > 60 ML/MIN (60-); GLUCOSE 85 mg/dL (74-118); POTASSIUM 3.8 mmol/L (3.5-5.1); SODIUM 143 mmol/L (136-145)
[2019-11-28] MEDS: SODIUM CHLORIDE 0.9% 1000ML 1,000 ML IV SCH ×2 (07:26→20:07)
[2019-11-28] MEDS: IPRATROPIUM BROMIDE 0.02% 2.5 ML NEB NEB SCH ×5 (07:55→22:00)
[2019-11-28] MEDS: ALBUTEROL SULF 0.083% NEB SOLN 3 ML NEB NEB SCH ×4 (07:55→23:00)
--- NOTE | 2019-11-28 08:00 | NUR ---
INITIAL ASSESSMENT COMPLETE, PT HAS TRACH COLLAR ON, 10 L O2, 60%, PEG TUBE IN PLACE, TOLERATING FEEDING, TELE ON PT,THICKEN LIQUIDS USED, NO DISTRESS NOTED, SKIN INTACT, PT ABLE TO COMMUNICATE USING WRITING, ALERT AND ORIENTED, COOPERATIVE, NO DISTRESS NOTED.
[2019-11-28] MEDS: BUSPIRONE HCL 5 MG TAB GT SCH ×2 (09:00→16:53)
[2019-11-28] MEDS: DOCUSATE SODIUM LIQD 100 MG/10 ML UDC GT SCH ×2 (09:00→16:53)
[2019-11-28] MEDS: SERTRALINE HCL 50 MG TAB GT SCH ×2 (09:00→16:53)
[2019-11-28] MEDS: CEFEPIME 2 GM/NS 0.9% 100 ML 100 ML IV SCH ×2 (10:00→22:09)
--- NOTE | 2019-11-28 10:00 | NUR ---
PEG DRESSING CHANGED, LITTLE RESIDUAL NOTED, DEEP SUCTIONING WITH STERILE TECHNIQUE, TOLERATED WELL, CLEAR PHLEGM NOTED, NO DISTRESS NOTED, BREAKFAST EATEN 100%, NO DISTRESS, DR. JAIMES HERE TO SEE PT, DR RUSSELL HERE TO SEE PT, PT TO WORK WITH PT TODAY, CALL LIGHT IN REACH
--- NOTE | 2019-11-28 10:43 | NUR ---
Pt unavailable at this time. P.T. at bedside. Will follow up as able. DEV DRUMMOND Upholstery Mechanic Spiritual Care Department O: [phone]
[2019-11-28] MEDS: VANCOMYCIN 1GM/NS 250 ML 250 ML IV SCH ×2 (11:00→22:54)
[2019-11-28] MEDS: METOPROLOL TARTRATE 25 MG TAB GT SCH (11:42)
--- NOTE | 2019-11-28 14:26 | NUR ---
PT ASLEEP, RESTING, CALL LIGHT IN REACH, VS WNL, NO DISTRESS NOTED, COLLAR IN PLACE
--- NOTE | 2019-11-28 16:04 | NUR ---
SPOKE WITH DR JAIMES ABOUT RETURNING TO SNF, HE STATED TOMORROW, FAXED CLINICALS TO GET APPROVAL STARTED.
[2019-11-28] MEDS: ENOXAPARIN SOD INJ 40 MG/0.4 ML SYR SC SCH (16:53)
--- NOTE | 2019-11-28 20:05 | NUR ---
PATIENT IN BED AND VITALS ARE IN STABLE CONDITION, PATIENT SHOWING SIGNS OF ANXIETY AND WAS MEDICATED ORDERED. TRACH COLLAR IS PATENT, AND INTACT, FEEDING TUBE IS RUNNING AT ORDERED RATE. SUCTIONING IS BEING DONE ON PATIENT NEEDED AND COMMUNICATES NO PAIN AT THIS TIME. IV FLUIDS ARE RUNNING AT ORDERED RATE. BED IS IN LOWEST POSITION, BOTH SIDE RAILS ARE UP, CALL LIGHT IS WITHIN EASY REACH, WILL CONTINUE TO MONITOR.
[2019-11-28] MEDS: ONDANSETRON HCL INJ 2MG/ML 2ML 2 MG/ML VIAL IV PRN (20:07)
[2019-11-28] MEDS: LORAZEPAM 0.5 MG TAB PO PRN (20:07)
[2019-11-28] MEDS: QUETIAPINE FUMARATE 25 MG TAB GT SCH (20:07)
[2019-11-29] VITALS (8 sets, daily range): BP systolic 137–187; BP diastolic 66–95
[2019-11-29] MEDS: ALBUTEROL/IPRATROPIUM 3 ML NEB INH SCH ×4 (01:00→19:00)
[2019-11-29] MEDS: METOPROLOL TARTRATE 25 MG TAB GT SCH ×2 (01:11→12:30)
[2019-11-29] MEDS: IPRATROPIUM BROMIDE 0.02% 2.5 ML NEB NEB SCH ×3 (02:00→22:00)
[2019-11-29] MEDS: ALBUTEROL SULF 0.083% NEB SOLN 3 ML NEB NEB SCH ×3 (02:45→23:00)
[2019-11-29] MEDS: LORAZEPAM 0.5 MG TAB PO PRN ×2 (03:23→12:30)
--- NOTE | 2019-11-29 03:24 | NUR ---
PATIENT DISPLAYING SIGNS OF ANXIETY. COMMUNICATES THAT SHE IS HOT AND CANNOT BREATHE. O2 SAT IS WITHIN NORMAL RANGE AND AC TURNED DOWN TO LOWEST TEMPERATURE AND MANUALLY FANNED PATIENT. PATIENT MEDICATED ORDERED, STAYING IN ROOM WITH PATIENT UPON REQUEST, CONTINUING TO MONITOR.
--- NOTE | 2019-11-29 07:00 | NUR ---
RCD PT AT BED PT IS ALERT AND ORIENTED PT ON TRACH GETTING O2 10 L ,IV PATENT PEG TUBE FEED GOING 30 ML /HR SUCTION DONE ,BED LOW AND LOCKED CALL LIGHT IN REACH
[2019-11-29] MEDS: TRAMADOL HCL 50 MG TAB PO PRN (08:22)
[2019-11-29] MEDS: DOCUSATE SODIUM LIQD 100 MG/10 ML UDC GT SCH ×2 (09:00→16:29)
[2019-11-29] MEDS: SERTRALINE HCL 50 MG TAB GT SCH ×2 (09:00→16:29)
[2019-11-29] MEDS: BUSPIRONE HCL 5 MG TAB GT SCH ×2 (09:00→16:29)
--- NOTE | 2019-11-29 09:43 | NUR ---
PAGED DR VIERA TO NOTIFY THE CRITICAL [facility] TROUGH AND LEFT THE MESSAGE
[2019-11-29] MEDS: CEFEPIME 2 GM/NS 0.9% 100 ML 100 ML IV SCH (10:00)
--- NOTE | 2019-11-29 10:00 | NUR ---
RESIDUAL CHECKED PT TOLERATING WELL NO RESIDUALS THIS TIME
[2019-11-29] MEDS: VANCOMYCIN 1GM/NS 250 ML 250 ML IV SCH (11:00)
--- NOTE | 2019-11-29 11:55 | NUR ---
PAGED DR Cas JAIMES AND NOTIFY THE [facility] GOT THE ORDER TO DC THE ALL ANTIBIOTICS AND SEND [facility]
--- NOTE | 2019-11-29 12:00 | NUR ---
PATIENT IS WAITING FOR THE ROOM ALLOTMENT IN [facility]
--- NOTE | 2019-11-29 14:00 | NUR ---
SPOKE WITH FACILITY REFAXED CLINICALS WAITING ON AUTH
--- NOTE | 2019-11-29 16:00 | NUR ---
NO RESIDUAL THIS TIME
[2019-11-29] MEDS: ENOXAPARIN SOD INJ 40 MG/0.4 ML SYR SC SCH (16:29)
--- NOTE | 2019-11-29 18:43 | NUR ---
PT RESTING ON BED STILL WAITING TO ROOM AT [facility]
--- NOTE | 2019-11-29 19:24 | NUR ---
Patient received sitting up in bed. AAO x 2. No signs of pain or respiratory distress noted. Patient assisted to a more comfortable position. HOB elevated. Trach collar in place. Safety measures implemented. Call light within reach.
[2019-11-29] MEDS: QUETIAPINE FUMARATE 25 MG TAB GT SCH (20:14)
--- NOTE | 2019-11-29 21:08 | NUR ---
Patient suctioned and on 8 L O2. Patient tolerated well. Will continue to monitor patient.
--- NOTE | 2019-11-29 22:16 | NUR ---
G-tube residual checked---30cc. Tube feeding infusing at 30 cc/hr. Will continue to monitor.
[2019-11-30] VITALS: BP 166/78
[2019-11-30] MEDS: METOPROLOL TARTRATE 25 MG TAB GT SCH ×2 (01:38→12:30)
[2019-11-30] MEDS: ALBUTEROL/IPRATROPIUM 3 ML NEB INH SCH ×3 (02:00→14:50)
[2019-11-30] MEDS: IPRATROPIUM BROMIDE 0.02% 2.5 ML NEB NEB SCH (02:00)
[2019-11-30] MEDS: ALBUTEROL SULF 0.083% NEB SOLN 3 ML NEB NEB SCH (03:00)
[2019-11-30 04:00] VITALS: BP 164/79
[2019-11-30] MEDS: BUSPIRONE HCL 5 MG TAB GT SCH (08:41)
[2019-11-30] MEDS: TRAMADOL HCL 50 MG TAB PO PRN (08:41)
[2019-11-30] MEDS: SERTRALINE HCL 50 MG TAB GT SCH (08:41)
[2019-11-30] MEDS: LORAZEPAM 0.5 MG TAB PO PRN (08:41)
[2019-11-30 08:48] VITALS: BP 169/83
[2019-11-30 08:54] VITALS: BP 169/83
[2019-11-30] MEDS: DOCUSATE SODIUM LIQD 100 MG/10 ML UDC GT SCH (09:00)
--- NOTE | 2019-11-30 09:11 | NUR ---
PEER TO PEER OFFERED [phone] URIBE BY 1PM TODAY.
[2019-11-30] MEDS ORDERED: ENOXAPARIN SOD INJ 40 MG/0.4 ML SYR SC STA (09:43)
[2019-11-30] MEDS ORDERED: ENOXAPARIN SOD INJ 40 MG/0.4 ML SYR SC ONE (10:00)
--- NOTE | 2019-11-30 10:50 | NUR ---
LONGTERM FACILITY DISCHARGE INFORMATION PATIENT HAS BEEN ACCEPTED TO: NAME: [facility] ADDRESS:[id number] ACCEPTING LIFE CONSULTANT: JOSE ROBERTO HUDSON MD: THEODORE ROOM: [address] NURSE CALL REPORT TO: [phone] IMM SIGNED AND OBTAINED (if applicable): IMM THE FOLLOWING DOCUMENTS MUST ACCOMPANY PATIENT FOR TRANSFER: COPIED CHART:PACKET
[2019-11-30 11:42] VITALS: BP 147/73
--- NOTE | 2019-11-30 11:48 | NUR ---
Patient was upset that she explained in writing board that she dont want go back to [facility], Notified Dr Cas De La Cruz he said we dont have any other option to go any other [facility], talked to household worker, she said she already talked to patient and Family yesterday that [facility] in [place] not accepting any patients bcz of Covid Situation. Talked to her Son and talked to patient too.
[2019-11-30] MEDS ORDERED: CLINDAMYCIN PHOS 900MG/ 50ML 50 ML IV SCH (12:00)
[2019-11-30 13:30] LABS: ABG HCO3 30 mmol/L (22-26); ABG PCO2 50 mmHg (35-45); ABG PH 7.39 (7.35-7.45); ABG PO2 83 mmHg (80-105)
--- NOTE | 2019-11-30 14:41 | NUR ---
Patient looks very anxious, agitated, notified Dr Cas De La Cruz, new orders recvd
--- NOTE | 2019-11-30 14:47 | NUR ---
SPOKE WITH SON WHOM STATES SHE GETS "OUT OF WHACK" WITH HER PSYCH MEDICATIONS AND GETS PARANOID THAT PEOPLE ARE TRYING TO KILL HER, HE STATES AT THE LAST FACILITY SHE WAS AT SHE KEPT ACCUSING THEM OF "PUTTING BOMBS UP HER BUTT" HE STATES TO MEDICATE HER AND SHE WILL CALM DOWN, CALLED DR JAIMES AND LET KNOW, HE SPOKE WITH NURSE TO MAKE ADJUSTMENT
[2019-11-30] MEDS ORDERED: LORAZEPAM INJ 2 MG/ML VIAL IM SCH (15:00)
[2019-11-30] MEDS ORDERED: LORAZEPAM INJ 2 MG/ML VIAL ONE (15:59)
[2019-11-30] MEDS ORDERED: LORAZEPAM INJ 2 MG/ML VIAL IM ONE (16:00)
--- NOTE | 2019-11-30 16:05 | NUR ---
Patient discharged to [facility], report called to Ramon FOWLER, EMS here to pick patient, Not In any distress, Suction done by Respiratory therapist
[2019-12-01] MEDS ORDERED: ENOXAPARIN SOD INJ 40 MG/0.4 ML SYR SC SCH (09:00)
== END 2019-11-30 16:25 | DRG 190 ==
LOC: ER 17:30 → ERHOLD 17:31 → MED/SURG2 11-26 00:22
DX: J44.0 Chronic obstructive pulmonary disease with (acute) lower respiratory infection (principal); J18.9 Pneumonia, unspecified organism; J96.11 Chronic respiratory failure with hypoxia; J44.1 Chronic obstructive pulmonary disease with (acute) exacerbation; E11.9 Type 2 diabetes mellitus without complications; D64.9 Anemia, unspecified; Z93.0 Tracheostomy status; Z11.59 Encounter for screening for other viral diseases; C50.919 Malignant neoplasm of unspecified site of unspecified female breast
CPT/HCPCS: 36415; 36600; 71045; 74230; 80048; 80053; 80202; 82550; 82553; 82805; 82948; 83605; 83690; 83880; 84443; 84484; 85025; 85610; 85730; 87040; 87070; 87205; 87400; 87635; 93005; 94002; 94640; 97139; 99285; J0692; J1650; J2060; J2405; J3370; J7030